=== PATIENT | female | born 1980 | race Caucasian/White ===

== ENCOUNTER 2016-07-13 00:49 | Inpatient (IN) | payer MEDICAID ==
[~2016-07-13] VITALS: Ht 152.4 cm; Wt 63.8 kg
[2016-07-13 01:36] VITALS: BP 159/90; PULSE 90; RESP 18; Ht 152.4 cm; Wt 63.8 kg
[2016-07-13] MEDS ORDERED: PRENAT PO (01:49)
[2016-07-13] MEDS ORDERED: BUTORPHANOL 2 MG INJ IV PRN (02:00)
[2016-07-13] MEDS ORDERED: ACETAMINOPHEN/CODEINE #3 TAB PO PRN ×2 (02:00→11:30)
[2016-07-13] MEDS ORDERED: METHYLERGONOVINE 0.2 MG INJ IM PRN ×2 (02:00→11:30)
[2016-07-13] MEDS ORDERED: MISOPROSTOL 200 MCG TAB PR PRN ×2 (02:00→11:30)
[2016-07-13] MEDS ORDERED: IBUPROFEN 600 MG TAB PO PRN (02:00)
[2016-07-13] MEDS ORDERED: CARBOPROST 250 MCG INJ IM PRN ×2 (02:00→11:30)
[2016-07-13] MEDS ORDERED: LIDOCAINE 1% (MPF) 30 ML INJ INJ PRN (02:00)
[2016-07-13] MEDS ORDERED: OXYTOCIN 30 UNITS/LR 500 ML IV PRN ×2 (02:00→11:30)
[2016-07-13] MEDS ORDERED: OXYTOCIN 30 UNITS/LR 500 ML IV SCH (02:00)
[2016-07-13] MEDS: LACTATED RINGER'S 1,000 ML IV SCH ×2 (02:25→06:27)
[2016-07-13] MEDS ORDERED: LACTATED RINGER'S 1,000 ML IV PRN (03:00)
[2016-07-13 03:43] LABS: ADD SCAN DIFF NO
[2016-07-13 03:59] LABS: BASOPHILS % 0.3 % (0.0-2.0); EOSINOPHILS # 0.1 10^3/ul (0.0-0.5); HEMATOCRIT 37.1 % (37.0-47.0); HEMOGLOBIN 12.1 g/dl (12.0-16.0); LYMPHOCYTES # 1.9 10^3/ul (0.8-2.9); LYMPHOCYTES % 18.9 % (15.0-51.0); MEAN CORPUSCULAR HEMOGLOBIN 28.5 pg (29.0-33.0); MEAN CORPUSCULAR HGB CONC 32.6 g/dl (32.0-37.0); MEAN CORPUSCULAR VOLUME 87.5 fl (82.0-101.0); MEAN PLATELET VOLUME 12.9 fl (7.4-10.4); MONOCYTE # 0.8 10^3/ul (0.3-0.9); MONOCYTES % 7.8 % (0.0-11.0); NEUTROPHIL # 7.3 10^3/ul (1.6-7.5); PLATELET COUNT 225 10^3/UL (140-415); RED BLOOD COUNT 4.24 10^6/ul (4.20-5.40); RED CELL DISTRIBUTION WIDTH 13.5 % (11.5-14.5); WHITE BLOOD COUNT 10.3 10^3/ul (4.8-10.8)
[2016-07-13 04:29] LABS: INR 0.92; PROTIME 12.4 Sec (12.2-14.2)
[2016-07-13 04:30] LABS: PARTIAL THROMBOPLASTIN TIME 23.9 Sec (25.0-35.0)
[2016-07-13] MEDS ORDERED: FENTAnyl 2MCG/ML-ROPIV 0.2% 100 ML ONE (06:07)
--- NOTE | 2016-07-13 06:19 | HP ---
Date/Time of Note Date/Time of Note DATE: 07/13/16 TIME: 06:15 OB - History Hx of Present : 4 Para: 2 Care: Good Care Obstetrical Complications: None Medical Complications: None Past Family/Social History * Past Medical, Surgical, Family and Obstetric Histories reviewed from chart. GBS Status: Negative OB Admission Exam Vital Signs Vital Signs Vital Signs Date Time Temp Pulse Resp B/P Pulse Ox O2 Delivery O2 Flow Rate FiO2 07/13/16 01:36 99.4 90 18 159/90 Room Air Physical Exam HEENT: WNL Heart: Rhythm Normal Abdomen: WNL Extremities: Normal Cervical Dilatation: 1cm Effacement: 75% Station: -2 Varibility: Moderate Last 72 hours Lab Results CBC & BMP 07/13/16 02:25 OB Assessment/Plan Reason for admission: rupture of membranes Plan: Expectant Management Other plan: Admit to L&D. GBS negative. Pitocin, epidural prn. TYRESE PHILLIPS Jul 13, 2016 06:19
[2016-07-13] MEDS ORDERED: NALOXONE (0.4 MG/ML) INJ IV PRN (07:00)
[2016-07-13] MEDS ORDERED: FENTAnyl 2MCG/ML-ROPIV 0.2% 100 ML BAG EPI SCH (07:00)
[2016-07-13] MEDS: OXYTOCIN 30 UNITS/LR 500 ML IV SCH ×2 (09:18→10:08)
--- NOTE | 2016-07-13 09:24 | LDN ---
Date/Time of Note Date/Time of Note DATE: 07/13/16 TIME: 09:22 Delivery Summary Weeks of Gestation 38 weeks and 5 days Placenta Delivered: Spontaneously Meconium: none Episiotomy: No Perineal laceration: 0 Anesthesia type: Epidural Estimated blood loss: 200 Sponge & Needle done & correct: Yes All needle counts correct: Yes Any foreign bodies felt in the: No Problems: Infant Delivery Information Sex Infant Sex: female Apgars 1 Minute: 9 5 Minute: 9 Suctioning Nose & mouth suctioned at adam: Yes Delee suction performed: No Umbilical Cord Umbilical cord with: 3 Vessels Cord presentations: no nuchal cord Cord Blood was obtained: Yes Mother & Baby Disposition Disposition Mom & Baby to Maternity; Good: Yes SHARLENE VALENTINE MD Jul 13, 2016 09:24
[2016-07-13 10:50] VITALS: BP 111/68; PULSE 65; RESP 17
[2016-07-13] MEDS ORDERED: BENZOCAINE 20% 56 ML SPRAY TOP PRN (11:30)
[2016-07-13] MEDS ORDERED: DIBUCAINE 1% 30 GM OINT PR PRN (11:30)
[2016-07-13] MEDS ORDERED: WITCH HAZEL/GLYCERIN PAD PR PRN (11:30)
[2016-07-13] MEDS ORDERED: ACETAMINOPHEN 325 MG TAB PO PRN (11:30)
[2016-07-13] MEDS ORDERED: LANOLIN 7 GM TUBE TOP PRN (11:30)
[2016-07-13] MEDS: IBUPROFEN 600 MG TAB PO SCH ×3 (12:13→23:49)
[2016-07-13 15:30] VITALS: BP 109/58; PULSE 67; RESP 16
[2016-07-13] MEDS: LACTATED RINGER'S 1,000 ML IV* SCH ×2 (18:23→19:04)
[2016-07-13 20:00] VITALS: BP 115/79; PULSE 80; RESP 18
[2016-07-13] MEDS: SENNA/DOCUSATE NA (8.6MG/50MG) TAB PO SCH (21:13)
[2016-07-14] VITALS: BP 118/66; PULSE 70; RESP 20
[2016-07-14] MEDS: LACTATED RINGER'S 1,000 ML IV* SCH ×3 (03:04→19:04)
[2016-07-14 04:00] VITALS: BP 112/59; PULSE 71; RESP 18
[2016-07-14] MEDS: IBUPROFEN 600 MG TAB PO SCH ×4 (05:31→23:32)
[2016-07-14 08:00] VITALS: BP 104/68; PULSE 78; RESP 19
[2016-07-14 08:04] LABS: ADD SCAN DIFF NO
[2016-07-14 08:10] LABS: BASOPHILS % 0.3 % (0.0-2.0); EOSINOPHILS # 0.2 10^3/ul (0.0-0.5); EOSINOPHILS % 1.4 % (0.0-7.0); HEMATOCRIT 36.5 % (37.0-47.0); HEMOGLOBIN 11.9 g/dl (12.0-16.0); LYMPHOCYTES # 2.4 10^3/ul (0.8-2.9); LYMPHOCYTES % 15.6 % (15.0-51.0); MEAN CORPUSCULAR HEMOGLOBIN 28.5 pg (29.0-33.0); MEAN CORPUSCULAR HGB CONC 32.6 g/dl (32.0-37.0); MEAN CORPUSCULAR VOLUME 87.3 fl (82.0-101.0); MEAN PLATELET VOLUME 12.3 fl (7.4-10.4); MONOCYTES % 6.8 % (0.0-11.0); NEUTROPHIL # 11.5 10^3/ul (1.6-7.5); PLATELET COUNT 192 10^3/UL (140-415); RED BLOOD COUNT 4.18 10^6/ul (4.20-5.40); RED CELL DISTRIBUTION WIDTH 13.7 % (11.5-14.5); WHITE BLOOD COUNT 15.3 10^3/ul (4.8-10.8)
[2016-07-14] MEDS: SENNA/DOCUSATE NA (8.6MG/50MG) TAB PO SCH ×2 (09:36→20:46)
--- NOTE | 2016-07-14 13:15 | PN ---
Date/Time of Note Date/Time of Note DATE: 07/14/16 TIME: 13:14 OB Subjective Subjective Subjective Post normal vaginal delivery day 1 Afebrile vital signs are stable abdomen soft uterus firm lochia moderate extremity normal. Laboratory Tests Test 07/14/16 07:28 White Blood Count 15.310^3/ul Red Blood Count 4.1810^6/ul Hemoglobin 11.9g/dl Hematocrit 36.5% Mean Corpuscular Volume 87.3fl Mean Corpuscular Hemoglobin 28.5pg Mean Corpuscular Hemoglobin Concent 32.6g/dl Red Cell Distribution Width 13.7% Platelet Count 30999^3/UL Mean Platelet Volume 12.3fl Neutrophils % 75.0% Lymphocytes % 15.6% Monocytes % 6.8% Eosinophils % 1.4% Basophils % 0.3% Nucleated Red Blood Cells % 0.0/100WBC Neutrophils # 11.510^3/ul Lymphocytes # 2.410^3/ul Monocytes # 1.010^3/ul Eosinophils # 0.210^3/ul Basophils # 0.010^3/ul Nucleated Red Blood Cells # 0.010^3/ul Current Medications Medications (Trade) Dose Ordered Sig/Godfrey Route PRN Reason Start Time Stop Time Status Last Admin Dose Admin Lactated Ringer's (Lr) 1,000 ml @ 125 mls/hr Q8H IV 07/13/16 01:42 07/13/16 11:05 DC 07/13/16 06:27 Butorphanol Tartrate (Stadol) 2 mg Q2H PRN IV PAIN 07/13/16 02:00 07/13/16 11:05 DC Lidocaine 30 ml 30 ml ONCE PRN INJ EPISIOTOMY/TEARING 07/13/16 02:00 07/13/16 11:05 DC Oxytocin/Lactated Ringer's 500 ml @ 125 mls/hr ONCE -MAY REPEAT X1 IV 07/13/16 02:00 07/13/16 11:05 DC 07/13/16 10:08 Oxytocin/Lactated Ringer's 500 ml @ 125 mls/hr ONCE IV 07/13/16 02:00 07/13/16 11:06 DC Ibuprofen (Motrin) 600 mg ONCE PRN PO Mild Pain (Pain Score 1-3) 07/13/16 02:00 07/13/16 11:06 DC Acetaminophen/ Codeine Phosphate 2 tab 2 tab ONCE PRN PO Moderate to Severe Pain (4-10) 07/13/16 02:00 07/13/16 11:06 DC Lactated Ringer's 1,000 ml @ 2,000 mls/hr Q30M PRN IV PRE-EPIDURAL BOLUS 07/13/16 03:00 07/13/16 11:06 DC 07/13/16 05:50 Oxytocin/Lactated Ringer's 500 ml @ 0 mls/hr ONCE PRN IV For Hemorrhage Management 07/13/16 02:00 07/13/16 11:06 DC Methylergonovine Maleate (Methergine) 0.2 mg ONCE PRN IM VAGINAL BLEEDING 07/13/16 02:00 07/13/16 11:06 DC Carboprost Tromethamine (Hemabate) 250 mcg ONCE PRN IM VAGINAL BLEEDING 07/13/16 02:00 07/13/16 11:06 DC Misoprostol 1000 mcg 1,000 mcg ONCE PRN MO VAGINAL BLEEDING 07/13/16 02:00 07/13/16 11:06 DC Fentanyl/ Ropivacaine 100 ml @ STK-MED ONCE .ROUTE 07/13/16 06:07 07/13/16 06:08 DC Naloxone HCl (Narcan) 0.2 mg Q2M PRN IV FOR RESP RATE 8 OR LESS 07/13/16 07:00 07/13/16 11:05 DC Fentanyl/ Ropivacaine 100 ml 100 ml EPIDURAL (PCEA) EPI 07/13/16 07:00 07/13/16 11:05 DC Lactated Ringer's (Lr) 1,000 ml @ 125 mls/hr Q8H IV* 07/13/16 11:04 Ibuprofen (Motrin) 600 mg Q6 PO 07/13/16 12:00 07/14/16 11:28 Acetaminophen (Tylenol Tab) 650 mg Q4H PRN PO PAIN LEVEL 1-5 07/13/16 11:30 Acetaminophen/ Codeine Phosphate (Tylenol No.3) 1 tab Q4H PRN PO PAIN LEVEL 1-5 07/13/16 11:30 Senna/Docusate Sodium (Senokot-S) 1 tab BID PO 07/13/16 21:00 07/14/16 09:36 Witch Jesika/ Glycerin (Tucks Pads) 1 pad BEDSIDE MEDICATION PRN MO HEMORRHOID/EPISIOTMY PAIN 07/13/16 11:30 07/13/16 12:12 Benzocaine (Dermoplast [place]) 1 spray BEDSIDE MEDICATION PRN TOP HEMORRHOID/EPISIOTMY PAIN 07/13/16 11:30 07/13/16 12:12 Dibucaine (Nupercainal) 1 applic BEDSIDE MEDICATION PRN MO HEMORRHOID/EPISIOTMY PAIN 07/13/16 11:30 Lanolin (Iwj-U-Rrambi) 1 applic BEDSIDE MEDICATION PRN TOP BEDSIDE FOR TONYA TO NIPPLES 07/13/16 11:30 07/13/16 12:12 Diphtheria/ Tetanus/Acell Pertussis 0.5 ml 0.5 ml ONCE ONCE IM* 07/15/16 09:00 07/15/16 09:01 Oxytocin/Lactated Ringer's 500 ml @ 0 mls/hr ONCE PRN IV For Hemorrhage Management 07/13/16 11:30 Methylergonovine Maleate (Methergine) 0.2 mg ONCE PRN IM VAGINAL BLEEDING 07/13/16 11:30 Carboprost Tromethamine (Hemabate) 250 mcg ONCE PRN IM VAGINAL BLEEDING 07/13/16 11:30 Misoprostol (Cytotec) 1,000 mcg ONCE PRN MO VAGINAL BLEEDING 07/13/16 11:30 NEGRITO LOUIS MD Jul 14, 2016 13:15
[2016-07-14 16:00] VITALS: BP 113/61; RESP 18
[2016-07-14 20:00] VITALS: BP 118/65; PULSE 73; RESP 18
[2016-07-15 04:00] VITALS: BP 127/72; PULSE 74; RESP 20
[2016-07-15] MEDS: IBUPROFEN 600 MG TAB PO SCH ×2 (05:32→12:40)
[2016-07-15 08:00] VITALS: BP 108/70; PULSE 66; RESP 16
[2016-07-15] MEDS ORDERED: DIPHTH/TET/ACEL PERTUSS (ADULT) 0.5 ML VIAL IM* ONE (09:00)
--- NOTE | 2016-07-15 09:34 | PD.PPDC ---
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
--- NOTE | 2016-07-15 09:37 | DS ---
Date/Time of Note Date/Time of Note DATE: 07/15/16 TIME: 09:35 Discharge Summary Admission/Discharge Info Admit Date/Time Jul 13, 2016 at 01:33 Discharge Date/Time July 15, 2016 at 09 30 Final Diagnosis Normal vaginal delivery Procedures Normal spontaneous vaginal delivery Hx of Present Illness Term in labor Hospital Course Satisfactory Home Meds Reported Medications Multivit/Min/Fol Ac/Iron/Pren* ( S*) 1 Tab Tab, 1 TAB PO DAILY, TAB 07/13/16 Follow-up Plan instructions recommended to appointment in 2 weeks at the clinic. NEGRITO LOUIS MD Jul 15, 2016 09:37
[2016-07-15] MEDS: SENNA/DOCUSATE NA (8.6MG/50MG) TAB PO SCH (09:50)
[2016-07-15 16:00] VITALS: BP 110/62; PULSE 60; RESP 17
== END 2016-07-15 17:00 | disposition home or self-care (01) | DRG 775 ==
LOC: OBT 00:49 → L-D 00:50 → OBT 01:32 → L-D 01:33 → PP1 10:55
PROVIDERS: ADMIT Obstetrics & Gynecology; ATTEND Obstetrics & Gynecology
PROC: 10E0XZZ Delivery of Products of Conception, External Approach (ICD-10-PCS; principal; 2016-07-13)
PROC: 3E0234Z Introduction of Serum, Toxoid and Vaccine into Muscle, Percutaneous Approach (ICD-10-PCS; 2016-07-15)
DX: O80 Encounter for full-term uncomplicated delivery (principal); Z23 Encounter for immunization; Z3A.38 38 weeks gestation of pregnancy; Z37.0 Single live birth
CPT/HCPCS: 62319; 85025; 85610; 85730; 86592; 86900; 86901; 90715; G0463; J2590; J3010; J7120